=== PATIENT | male | born 1995 | race Caucasian/White ===

== ENCOUNTER 2017-04-13 18:01 | Emergency (ER) | payer BC ==
[~2017-04-13] VITALS: Ht 180.3 cm; Wt 81.0 kg
[2017-04-13 18:03] VITALS: Ht 180.3 cm; Wt 81.0 kg
[2017-04-13] MEDS ORDERED: SODIUM CHLORIDE 0.9% 1000ML 1,000 ML IV STA (19:02)
[2017-04-13] MEDS ORDERED: ONDANSETRON INJ 2 MG/ML 2 ML VIAL IV STA (19:02)
[2017-04-13 19:15] LABS: URINE APPEARANCE CLEAR (CLEAR); URINE BILIRUBIN NEG (NEG); URINE COLOR YELLOW; URINE NITRITE NEG (NEG); URINE SPECIFIC GRAVITY 1.011 (1.000-1.030); UROBILINOGEN NEG (NEG)
[2017-04-13] MEDS ORDERED: MoRPHine SULFATE 4 MG/ML 1 ML CARP\\VIAL IV PRN (19:15)
[2017-04-13] MEDS ORDERED: OPTIRAY 320 IV PRN (19:15)
[2017-04-13 19:16] LABS: MANUAL MICROSCOPIC REQUIRED? NO; REVIEW REQ? NO
[2017-04-13] MEDS ORDERED: SENNTAB23 PO (19:16)
[2017-04-13] MEDS ORDERED: NXM/40 PO (19:16)
[2017-04-13 19:56] LABS: BASO % 0.5 %; BASO ABS # 0.04 K/uL (0-0.2); COMPLETE YES; EOS % 6.8 %; HEMATOCRIT 45.9 % (42-52); IG% 0.3 %; LYMPH % 24.2 %; LYMPH ABS # 1.92 K/uL (1.2-3.4); MEAN CELL VOLUME 88.3 fL (80-100); MEAN CORPUSCULAR HGB CONC 35.1 g/dl (32-36); MEAN PLATELET VOLUME 9.2 fL (7.4-10.4); MONO % 7.1 %; NEUT % 61.1 %; PLATELET COUNT 269 K/uL (130-400); WHITE BLOOD COUNT 7.92 K/uL (4.8-10.8)
[2017-04-13 20:22] LABS: ALKALINE PHOSPHATASE 58 U/L (45-117); ALT/SGPT 34 U/L (12-78); AST/SGOT 17 U/L (15-37); BLOOD UREA NITROGEN 12 mg/dl (7-18); BUN/CREATININE RATIO 9.3 (10-20); CALCIUM 9.4 mg/dl (8.5-10.1); CARBON DIOXIDE 27 mmol/L (21-32); CHLORIDE 106 mmol/L (98-107); GLUCOSE 104 mg/dl (70-99); POTASSIUM 3.7 mmol/L (3.5-5.1); SODIUM 139 mmol/L (136-145)
--- NOTE | 2017-04-13 22:10 | DIAGNOSTIC IMAGING REPORT ---
ABDOMEN AND PELVIS CT WITH IV AND ORAL CONTRAST CT DOSE: 326.04 mGy.cm HISTORY: Severe generalized abdominal pain. TECHNIQUE: Multiaxial CT images of the abdomen and pelvis were performed following the use of intravenous and oral contrast. A dose lowering technique was utilized adhering to the principles of ALARA. COMPARISON STUDY: None. FINDINGS: The lung bases are clear. The liver, spleen, gallbladder, pancreas, right kidney, and adrenal glands are within normal limits. No bowel wall thickening or obstruction. The pelvic organs are unremarkable. No suspicious lytic or blastic osseous lesions. A 7 mm hypodense lesion within the left kidney is technically too small to characterize but statistically represents a cyst. No hydronephrosis. The appendix is distended up 7 mm. However, this is likely due to the contrast filling the appendix. Therefore, no evidence for acute appendicitis. Bladder is mildly distended. No bladder wall thickening. IMPRESSION: 1. No bowel wall thickening or obstruction. 2. No evidence for acute appendicitis. 3. Mildly distended bladder. No bladder wall thickening. Electronically signed by: Wilner Medellin M.D. 04/13/2017 10:09 PM Dictated Date/Time: 04/13/2017 9:57 PM
[2017-04-13 22:21] VITALS: BP 140/71; PULSE 56; TEMP 36.7; O2SAT 100
--- NOTE | 2017-04-14 14:34 | EMERGENCY ROOM VISIT NOTE ---
ED Visit Note First contact with patient: 18:22 Chief Complaint: I'm having severe abdominal pain. History of Present Illness: Mr. Nunez is a 21 year-old white male who ambulates into the ED complaining of central abdominal pain running from the epigastric area to the suprapubic area. Historically patient reports he had similar pain approximately 2 weeks ago and was seen at a hospital in [place]. He reports lab testing was performed and was reported as normal and no imaging studies were performed. He was diagnosed with gastritis and constipation and started on Nexium and stool softeners. Patient reports since being discharged from the emergency department 2 weeks ago he continues to have pain and feels like it is escalating. Patient Lasix is his discomfort in a 2-3 inch band extending from the suprapubic area to the pubic symphysis in the central portion of the abdomen. Patient reports a onset of quadrant abdominal pain that started approximately hours ago. He describes the pain as a combination of sharp and cramping. He reports his pain is constant but does wax and wane in intensity. He currently rates his discomfort 7/10. The pain is nonradiating. He has not identified any aggravating or alleviating factors related to the pain. He does report he just got his prescriptions filled yesterday and started his Nexium. He has not taken any other medications for pain. Associated with his discomfort he reports when it becomes severe he develops chills and hot flashes and nausea but denies emily fevers or vomiting. Additionally he reports he has had a decreased appetite. Patient denies fevers, chills, sweats, skin eruptions, skin color changes, upper respiratory tract symptoms, shortness of breath, chest pain, diarrhea, constipation, rectal bleeding, black/tarry stools, urinary symptoms, hematuria, back/flank pain. Review of Systems: As noted above in history of present illness. All body systems were reviewed and found to be negative as noted above. Past Medical History: As previously noted. Current Medications: As previously noted. Allergies to Medications: Patient denies. Social History: Patient is [employer] student; he feels safe in his home environment; he denies tobacco use and admits to alcohol use. Physical Examination: Vital Signs: Date Time Temp Pulse Resp B/P (MAP) Pulse Ox O2 Delivery O2 Flow Rate FiO2 04/13/17 22:21 36.7 56 16 140/71 100 Room Air 9/28/17 21:25 70 16 118/61 100 04/13/17 21:24 64 04/13/17 20:42 58 18 142/75 100 Room Air 04/13/17 20:36 64 04/13/17 19:48 36.5 60 16 140/79 100 Room Air 04/13/17 18:03 36.4 77 16 151/86 100 GENERAL: 21-year-old male in mild distress due to pain, nontoxic-appearing, afebrile and hemodynamically stable. NEUROLOGICAL: Awake, alert and oriented to person, place and time. Answering questions appropriately and following commands. Normal gait. Good hand eye coordination. SKIN: Warm, dry and pink. No soft tissue eruptions or trauma noted. HEENT: Atraumatic and normocephalic. PERRLA. Sclera white and conjunctiva pink. Oral cavity moist and pink. Pharynx is nonerythematous or edematous. Speech normal. No lymphadenopathy. Trachea midline. No jugular venous distention. BACK: No tenderness over the bony spine. No CVA tenderness. THORAX: Lungs sounds are clear to auscultation and equal bilaterally with symmetrical chest wall. No wheezing, rales or rhonchi. No crepitus, tenderness , subcutaneous air or deformities noted. HEART: Regular rate and rhythm. No gallops, rubs or murmurs are appreciated. ABDOMEN: Flat, soft and nontender. Positive bowel sounds in all quadrants. No guarding, rigidity or organomegaly. EXTREMITIES: Moves all extremities well on command and with purpose. All distal neurovascular statuses are intact and equal bilaterally. ED Course: Patient is assessed as noted above. Laboratory Testing: Test 04/13/17 18:55 04/13/17 19:45 Range/Units Urine Color YELLOW Urine Appearance CLEAR CLEAR Urine pH 8.0 4.5-7.5 Urine Specific [place] 1.011 1.000-1.030 Urine Protein NEG NEG Urine Glucose (UA) NEG NEG Urine Ketones NEG NEG Urine Occult Blood NEG NEG Urine Nitrite NEG NEG Urine Bilirubin NEG NEG Urine Urobilinogen NEG NEG Urine Leukocyte Esterase NEG NEG White Blood Count 7.92 4.8-10.8 K/uL Red Blood Count 5.20 4.7-6.1 M/uL Hemoglobin 16.1 14.0-18.0 g/dL Hematocrit 45.9 42-52 % Mean Corpuscular Volume 88.3 80-100 fL Mean Corpuscular Hemoglobin 31.0 25-34 pg Mean Corpuscular Hemoglobin Concent 35.1 32-36 g/dl Platelet Count 269 130-400 K/uL Mean Platelet Volume 9.2 7.4-10.4 fL Neutrophils (%) (Auto) 61.1 % Lymphocytes (%) (Auto) 24.2 % Monocytes (%) (Auto) 7.1 % Eosinophils (%) (Auto) 6.8 % Basophils (%) (Auto) 0.5 % Neutrophils # (Auto) 4.84 1.4-6.5 K/uL Lymphocytes # (Auto) 1.92 1.2-3.4 K/uL Monocytes # (Auto) 0.56 0.11-0.59 K/uL Eosinophils # (Auto) 0.54 0-0.5 K/uL Basophils # (Auto) 0.04 0-0.2 K/uL RDW Standard Deviation 38.1 36.4-46.3 fL RDW Coefficient of Variation 11.9 11.5-14.5 % Immature Granulocyte % (Auto) 0.3 % Immature Granulocyte # (Auto) 0.02 0.00-0.02 K/uL Sodium Level 139 136-145 mmol/L Potassium Level 3.7 3.5-5.1 mmol/L Chloride Level 106 98-107 mmol/L Carbon Dioxide Level 27 21-32 mmol/L Anion Gap 6.0 3-11 mmol/L Blood Urea Nitrogen 12 7-18 mg/dl Creatinine 1.30 0.60-1.40 mg/dl Est Creatinine Clear Calc Drug Dose 94.9 ml/min Estimated GFR () 89.8 Estimated GFR (Non- 77.5 BUN/Creatinine Ratio 9.3 10-20 Random Glucose 104 70-99 mg/dl Calcium Level 9.4 8.5-10.1 mg/dl Total Bilirubin 0.6 0.2-1 mg/dl Direct Bilirubin 0-0.2 mg/dl Aspartate Amino Transf (AST/SGOT) 17 15-37 U/L Alanine Aminotransferase (ALT/SGPT) 34 12-78 U/L Alkaline Phosphatase 58 45-117 U/L Total Protein 8.0 6.4-8.2 gm/dl Albumin 4.4 3.4-5.0 gm/dl Lipase 115 73-393 U/L Chemistry Specimen Hemolysis Contrast Abdominal/Pelvic CT: Was reviewed by myself and read by the radiologist show normal-appearing liver, spleen, gallbladder, pancreas, right kidney and adrenal glands. No bowel wall thickening or obstruction. No suspicious lytic or blastic osseous lesions. 7 mm hypodense lesion within the left kidney to small to characterize but no hydronephrosis. Appendix is distended up to 7 mm without signs of inflammatory changes. Bladder is mildly dilated but the wall but the bladder wall was not thickened. Radiological Testing: Patient was hydrated with normal saline and he received 4 mg of Zofran IV and 4 mg of morphine IV. Patient was reassessed multiple times during his stay in the emergency department. Patient's case was reviewed with Dr. Pelaez; we agreed on diagnostic approach, treatment, disposition and plan per Patient was educated about today's findings and instructed on his treatment plan ; he verbalized understanding and agreement with this plan. Clinical Impression: Abdominal pain. Decision-Making: Initially my differential diagnosis I considered gastritis, constipation, gastric reflux, appendicitis, hepatitis, pancreatitis and other causes. Disposition: Patient discharged home in stable condition; prior to departure he was reassessed and subjectively reported that he was pain and symptom-free. Plan: Patient was encouraged to continue his current medications as prescribed. Patient was encouraged to use 650 mg of acetaminophen every 6 hours as needed for pain per Patient was encouraged to avoid stomach irritants and is still a hydrated thin crease clear fluids. Patient was encouraged to follow-up at [facility] in 3-4 days for recheck and possible referral to gastroenterology. Patient is encouraged return ED for worsening/uncontrolled pain, nausea/vomiting , bloody vomitus, bloody stools, fever or any new/concerning symptoms.
== END 2017-04-13 22:32 | disposition home or self-care (01) ==
LOC: C.EDB 18:02 → C.EDA 22:32
DX: R10.9 Unspecified abdominal pain (principal)